=== PATIENT | female | born 1955 | race Caucasian/White ===

== ENCOUNTER → 2020-05-24 | Outpatient (CLI) | payer OTHER | LOC: MHCPAIN 12:49 | DX: M47.817 Spondylosis without myelopathy or radiculopathy, lumbosacral region (principal); M54.5 Low back pain; M53.3 Sacrococcygeal disorders, not elsewhere classified; G89.29 Other chronic pain | CPT/HCPCS: G0463 ==

== ENCOUNTER → 2020-05-27 | Outpatient (CLI) | payer OTHER | LOC: MHCPAIN 09:29 | DX: M47.817 Spondylosis without myelopathy or radiculopathy, lumbosacral region (principal); M54.5 Low back pain; M53.3 Sacrococcygeal disorders, not elsewhere classified | CPT/HCPCS: J1040; Q9967 ==

== ENCOUNTER → 2023-08-16 | Outpatient (CLI) | payer MEDICARE, OTHER | LOC: COL.LAB 18:16 | DX: H60.60 Unspecified chronic otitis externa, unspecified ear (principal) ==

== ENCOUNTER 2023-08-30 05:59 | Day surgery (SDC) | payer MEDICARE, OTHER ==
[~2023-08-30] VITALS: Ht 168.9 cm; Wt 64.6 kg
[2023-08-30] MEDS ORDERED: CIPRO 500MG TA500 MG PO (06:17)
[2023-08-30] MEDS ORDERED: SYNTHROID 0.10.15 MG PO (06:18)
[2023-08-30] MEDS ORDERED: ZOCOR 20MG20 MG (06:18)
[2023-08-30] MEDS ORDERED: NEURONTIN600 MG/TAB PO (06:19)
[2023-08-30] MEDS ORDERED: ZYRTEC 10MG10 MG PO (06:19)
[2023-08-30] MEDS ORDERED: MOBIC15 MG PO (06:20)
[2023-08-30] MEDS ORDERED: TYLENOL 500MG500 MG PO (06:20)
[2023-08-30] MEDS ORDERED: MAXZIDE-25MG TA1 TAB PO (06:22)
[2023-08-30] MEDS ORDERED: FLEXERIL 1010 MG/TAB PO (06:22)
[2023-08-30] MEDS ORDERED: NORVASC 10MG10 MG PO (06:23)
[2023-08-30] MEDS ORDERED: COREG 25MG25 MG/TAB PO (06:23)
[2023-08-30] MEDS ORDERED: COZAAR100 MG PO (06:23)
[2023-08-30 07:05] VITALS: BP 143/86; PULSE 58; TEMP 97.8
--- NOTE | 2023-08-30 07:07 | NUR ---
0608 Pt ambulary to bay 1 with a steady gait, breathing even and unlabored. Pt is alert and oriented, accompanied today by her . Consents reviewed and signed by patient. IV established. LR infusing via gravity at KVO. Call light in reach. Warms blankts provided.
[2023-08-30 08:35] VITALS: BP 114/71; PULSE 64; TEMP 97.4
[2023-08-30 08:50] VITALS: BP 111/70; PULSE 58
[2023-08-30 09:05] VITALS: BP 122/77; PULSE 57
--- NOTE | 2023-08-30 09:26 | NUR ---
0835-PT ARRIVED VIA CART TO [facility], PATIENT ALERT ON ARRIVAL. AMBULATED WITH ASSISTANCE TO RECLINER, WARM BLANKET PROVIDED. VITAL SIGNS TAKEN, VSS. PT DENIES PAIN OR NAUSEA. REPORT OBTAINED FROM [facility]. UPDATE GIVEN TO PATIENT AND FAMILY AT BEDSIDE. 0850-VSS. PT TOLERATING PO INTAKE WITHOUT COMPLAINTS, DENIES PAIN OR NAUSEA. 0900-DISCHARGE INSTRUCTIONS REVIEWED WITH PT AND FAMILY, QUESTIONS INVITED. PATIENT CHANGED INTO CLOTHING INDEPENDENTLY. 904-IV CATHETER DISCONTINUED, TIP INTACT. PRESSURE HELD AND BANDAGE APPLIED. 919-PATIENT DISCHARGED HOME TO PO VIA WHEELCHAIR, ACCOMPANIED BY FAMILY. ALL BELONGINGS AND D/C PAPERWORK SENT WITH PT.
== END 2023-08-30 09:20 | disposition home or self-care (01) ==
LOC: SDCO 05:59
DX: Z12.11 Encounter for screening for malignant neoplasm of colon (principal); D12.0 Benign neoplasm of cecum; Z87.891 Personal history of nicotine dependence
CPT/HCPCS: J2405; J2704; J7120

== ENCOUNTER → 2024-05-27 | Outpatient (REF) | payer MEDICARE, OTHER ==
[~2024-05-27] MED LIST: CIPRO 500MG TA500 MG PO; COREG 25MG25 MG/TAB PO; COZAAR100 MG PO; FLEXERIL 1010 MG/TAB PO; MAXZIDE-25MG TA1 TAB PO; MOBIC15 MG PO; NEURONTIN600 MG/TAB PO; NORVASC 10MG10 MG PO; SYNTHROID 0.10.15 MG PO; TYLENOL 500MG500 MG PO; ZOCOR 20MG20 MG; ZYRTEC 10MG10 MG PO
== END ==
LOC: ZCOL.LAB 16:35
DX: J32.9 Chronic sinusitis, unspecified (principal)